=== PATIENT | male | born 1965 | race Caucasian/White ===

== ENCOUNTER 2022-01-26 10:06 | Observation (INO) ==
[2022-01-26 11:05] LABS: Basophils % 0.5 %; Eosinophils # 0.3 K/mcL (0.0-0.6); Eosinophils % 4.2 %; Hematocrit 47.7 % (37.5-50.1); Hemoglobin 16.4 g/dL (12.9-16.9); Immature Granulocytes % 0.3 % (0-4); Lymphocytes # 2.1 K/mcL (0.6-4.6); Lymphocytes % 26.6 %; Mean Corpuscular HGB Conc 34.4 g/dL (31.6-35.5); Mean Corpuscular Hemoglobin 33.7 pg (28.0-33.3); Mean Corpuscular Volume 97.9 fL (83.0-100.0); Mean Platelet Volume 9.6 fL (9.4-12.4); Monocytes # 0.4 K/mcL (0.0-1.3); Monocytes % 5.2 %; Neutrophils # 4.9 K/mcL (1.6-8.9); Platelet Count 220 K/mcL (140-400); Red Blood Count 4.87 M/mcL (4.19-5.50); Red Cell Distribution Width 13.1 % (11.5-14.5); Segmented Neutrophils % 63.2 %; White Blood Count 7.8 K/mcL (4.3-11.1)
[2022-01-26 11:14] LABS: INR 1.1; Prothrombin Time 12.6 Seconds (9.4-12.1)
[2022-01-26 11:17] LABS: Activated Partial Thrombo Time 38.1 Seconds (26.0-36.0)
[2022-01-26 11:28] LABS: BUN/Creatinine Ratio 11 (6-26); Blood Urea Nitrogen 11 mg/dL (6-20); Calcium 9.9 mg/dL (8.6-10.3); Carbon Dioxide 29 mEq/L (23-29); Chloride 101 mEq/L (98-107); Glucose 146 mg/dL (70-105); Osmolality,Calculated 286 (280-300); Potassium 3.6 mEq/L (3.5-5.1); Sodium 137 mEq/L (136-145); Troponin I < 0.03 ng/mL (< 0.04); eGFR For African Americans > 60 (> 60); eGFR For Non-African Americans > 60 (> 60)
[2022-01-26] MEDS ORDERED: Perflutren Lipid Microsphere 1.3 ML in 0.9 % Sodium Chloride 8.7 ML IVP PRN (11:55)
[2022-01-26] MEDS ORDERED: Nitroglycerin 0.4 MG TAB.SUBL SL PRN (11:55)
[2022-01-26] MEDS ORDERED: Naloxone 0.4 MG/ML INJ IVP PRN (11:55)
[2022-01-26] MEDS ORDERED: Ondansetron 4 MG/2 ML VIAL IVP PRN (11:55)
[2022-01-26] MEDS: Gabapentin 300 MG CAPSULE PO SCH ×3 (14:25→22:31)
[2022-01-26] MEDS: Cyanocobalamin (B-12) 1,000 MCG TABLET PO SCH (14:25)
[2022-01-26] MEDS: Nicotine 21 MG PATCH.TD24 TD SCH (14:26)
[2022-01-26] MEDS ORDERED: NON-FORMULARY MEDICATION 1 EACH EACH (Ropinirole Hcl [Requip] 4 MG Tablet) PO SCH (21:00)
[2022-01-26] MEDS: rOPINIRole 1 MG, rOPINIRole 3 MG PO SCH (22:31)
[2022-01-27 01:00] LABS: Basophils % 0.7 %; Mean Corpuscular Volume 98.1 fL (83.0-100.0); Red Cell Distribution Width 13.2 % (11.5-14.5)
[2022-01-27 01:02] LABS: Basophils # 0.1 K/mcL (0.0-0.2); Eosinophils # 0.3 K/mcL (0.0-0.6); Eosinophils % 3.8 %; Hematocrit 52.3 % (37.5-50.1); Hemoglobin 17.8 g/dL (12.9-16.9); Immature Granulocytes % 0.3 % (0-4); Immature Platelets 4.2 % (1.1-6.1); Lymphocytes # 2.8 K/mcL (0.6-4.6); Lymphocytes % 36.6 %; Mean Corpuscular Hemoglobin 33.4 pg (28.0-33.3); Mean Platelet Volume 10.8 fL (9.4-12.4); Monocytes # 0.5 K/mcL (0.0-1.3); Monocytes % 6.8 %; Platelet Count 117 K/mcL (140-400); Red Blood Count 5.33 M/mcL (4.19-5.50); Segmented Neutrophils % 51.8 %; White Blood Count 7.6 K/mcL (4.3-11.1)
[2022-01-27 01:11] LABS: INR 1.1; Prothrombin Time 12.8 Seconds (9.4-12.1)
[2022-01-27 01:36] LABS: Alanine Aminotransferase 16 Units/L (7-52); Albumin/Globulin Ratio 1.3 (1.1-2.2); Alkaline Phosphatase 74 Units/L (34-104); Aspartate Amino Transferase 18 Units/L (13-39); BUN/Creatinine Ratio 14 (6-26); Bilirubin,Total 0.5 mg/dL (0.3-1.0); Blood Urea Nitrogen 12 mg/dL (6-20); Calcium 9.9 mg/dL (8.6-10.3); Carbon Dioxide 26 mEq/L (23-29); Chloride 104 mEq/L (98-107); Chol/HDL Ratio 8.3 (0-4.9); Cholesterol 250 mg/dL (< 200); Globulin 3.2 g/dL (2.4-3.5); Glucose 90 mg/dL (70-105); HDL Cholesterol 30 mg/dL (40-59); LDL Cholesterol,Calculated 160 mg/dL (< 100); Magnesium 1.9 mg/dL (1.6-2.6); Osmolality,Calculated 285 (280-300); Potassium 3.8 mEq/L (3.5-5.1); Sodium 138 mEq/L (136-145); Total Protein 7.2 g/dL (6.4-8.9); Triglycerides 301 mg/dL (< 150); eGFR For African Americans > 60 (> 60); eGFR For Non-African Americans > 60 (> 60)
[2022-01-27 01:44] LABS: Neutrophils # 3.9 K/mcL (1.6-8.9)
[2022-01-27 01:59] LABS: Estimated Average Glucose 131 mg/dl; Hemoglobin A1C 6.2 %
[2022-01-27] MEDS: *HR* Enoxaparin 40 MG/0.4 ML SYRINGE SQ SCH (05:31)
[2022-01-27] MEDS: Cyanocobalamin (B-12) 1,000 MCG TABLET PO SCH (09:31)
[2022-01-27] MEDS: Aspirin 81 MG TAB.CHEW PO SCH (09:31)
[2022-01-27] MEDS: Gabapentin 300 MG CAPSULE PO SCH ×3 (09:31→20:57)
[2022-01-27] MEDS: lisinopriL 5 MG TABLET PO SCH (09:33)
[2022-01-27] MEDS: ARIPiprazole 2 MG TABLET PO SCH (09:33)
[2022-01-27] MEDS: Nicotine 21 MG PATCH.TD24 TD SCH (09:33)
[2022-01-27] MEDS: rOPINIRole 1 MG, rOPINIRole 3 MG PO SCH (20:58)
[2022-01-28] MEDS: *HR* Enoxaparin 40 MG/0.4 ML SYRINGE SQ SCH (06:15)
[2022-01-28] MEDS: Aspirin 81 MG TAB.CHEW PO SCH (09:05)
[2022-01-28] MEDS: Gabapentin 300 MG CAPSULE PO SCH ×3 (09:05→22:15)
[2022-01-28] MEDS: ARIPiprazole 2 MG TABLET PO SCH (09:06)
[2022-01-28] MEDS: lisinopriL 5 MG TABLET PO SCH (09:06)
[2022-01-28] MEDS: Nicotine 21 MG PATCH.TD24 TD SCH (09:08)
[2022-01-28] MEDS: Cyanocobalamin (B-12) 1,000 MCG TABLET PO SCH (09:08)
[2022-01-28] MEDS: rOPINIRole 1 MG, rOPINIRole 3 MG PO SCH (22:15)
[2022-01-29] MEDS ORDERED: D5% in 0.45% NACL w KCl 20 MEQ/1,000 ML MLS IVC SCH (00:01)
[2022-01-29] MEDS: *HR* Enoxaparin 40 MG/0.4 ML SYRINGE SQ SCH (06:35)
[2022-01-29] MEDS: Gabapentin 300 MG CAPSULE PO SCH ×2 (08:45→15:27)
[2022-01-29] MEDS: Aspirin 81 MG TAB.CHEW PO SCH (08:45)
[2022-01-29] MEDS: ARIPiprazole 2 MG TABLET PO SCH (08:45)
[2022-01-29] MEDS: Cyanocobalamin (B-12) 1,000 MCG TABLET PO SCH (08:45)
[2022-01-29] MEDS: lisinopriL 5 MG TABLET PO SCH (08:45)
[2022-01-29 08:48] LABS: Eosinophils % 3.8 %; Hematocrit 47.3 % (37.5-50.1); Immature Granulocytes % 0.4 % (0-4); Lymphocytes % 30.9 %; Mean Corpuscular HGB Conc 33.8 g/dL (31.6-35.5); Mean Corpuscular Hemoglobin 33.4 pg (28.0-33.3); Mean Corpuscular Volume 98.7 fL (83.0-100.0); Monocytes % 8.9 %; Platelet Count 207 K/mcL (140-400); Red Blood Count 4.79 M/mcL (4.19-5.50); Segmented Neutrophils % 55.5 %; White Blood Count 7.8 K/mcL (4.3-11.1)
[2022-01-29 08:49] LABS: Basophils % 0.5 %; Eosinophils # 0.3 K/mcL (0.0-0.6); Lymphocytes # 2.4 K/mcL (0.6-4.6); Monocytes # 0.7 K/mcL (0.0-1.3); Neutrophils # 4.4 K/mcL (1.6-8.9)
[2022-01-29] MEDS: Nicotine 21 MG PATCH.TD24 TD SCH (08:57)
[2022-01-29 09:09] LABS: BUN/Creatinine Ratio 13 (6-26); Blood Urea Nitrogen 13 mg/dL (6-20); Calcium 9.1 mg/dL (8.6-10.3); Carbon Dioxide 28 mEq/L (23-29); Chloride 107 mEq/L (98-107); Glucose 110 mg/dL (70-105); Osmolality,Calculated 289 (280-300); Sodium 139 mEq/L (136-145); eGFR For African Americans > 60 (> 60); eGFR For Non-African Americans > 60 (> 60)
[2022-01-29] MEDS ORDERED: *HR* Heparin 10,000 UNIT/10 ML VIAL ONE (12:55)
[2022-01-29] MEDS ORDERED: Nitroglycerin 1,000 MCG/5 ML VIAL IV ONE (12:55)
[2022-01-29] MEDS ORDERED: Heparin 1,000 UNITS/500 mL 500 ML ONE (12:55)
[2022-01-29] MEDS ORDERED: Iopamidol - 370 200 ML INFUS..BTL ONE (12:55)
[2022-01-29] MEDS ORDERED: 0.9 % Sodium Chloride 2,000 ML ONE (12:55)
[2022-01-29] MEDS ORDERED: *HR* FentaNYL (PF) 100 MCG/2 ML VIAL ONE (12:58)
[2022-01-29] MEDS ORDERED: *HR* Midazolam HCl 2 MG/2 ML VIAL ONE (12:59)
[2022-01-29 14:18] VITALS: TEMP 97.3
[2022-01-29 16:31] VITALS: O2SAT 98
[2022-01-29 17:42] VITALS: BP 128/61; PULSE 60
== END 2022-01-29 17:50 | disposition home or self-care (01) ==
LOC: EMEROOARM 10:06 → 3BNU 10:06 → SUATTDRO 12:33 → 3BNU 14:03
PROVIDERS: ADMIT Hospitalist; ATTEND Registered Nurse